=== PATIENT | female | born 2000 | race Two or more races ===

== ENCOUNTER 2021-02-09 13:18 | Inpatient (IN) | payer SELFPAY ==
[~2021-02-09] VITALS: Ht 165.1 cm; Wt 77.6 kg
[2021-02-09] MEDS ORDERED: IBUPROFEN 400 MG TABLET. PO PRN (13:30)
[2021-02-09] MEDS ORDERED: ACETAMINOPHEN 325 MG TABLET. PO PRN (13:30)
[2021-02-09] MEDS ORDERED: OXYTOCIN 30 UNIT/500 ML PREMIX 500 ML IV PRN ×4 (13:30)
[2021-02-09] MEDS ORDERED: IV RINGERS,LACTATED 1000ML 1,000 ML IV SCH (13:30)
[2021-02-09] MEDS ORDERED: LIDOCAINE 1% PF 30 ML VIAL. INJ PRN ×2 (13:30)
[2021-02-09] MEDS ORDERED: TERBUTALINE 1 MG/ML VIAL. SQ PRN ×2 (13:30)
[2021-02-09] MEDS ORDERED: 0.9 % SODIUM CHLORIDE 10 ML DISP.SYRIN. IV PRN ×2 (13:30)
[2021-02-09] MEDS ORDERED: BUTORPHANOL 2 MG/ML VIAL. IVP PRN ×2 (13:30)
[2021-02-09 13:59] LABS: BILIRUBIN,URINE NEGATIVE (NEG); CLARITY,URINE CLEAR; COLOR,URINE YELLOW; NITRITE,URINE NEGATIVE (NEG); PROTEIN,URINE NEGATIVE (NEG-TRACE); UROBILINOGEN,URINE 0.2 mg/dL (0.2 mg/dL)
[2021-02-09 14:04] LABS: BACTERIA,URINE FEW /HPF (0-FEW); RBC,URINE OCC /HPF (0-2); WBC,URINE OCC /HPF (0-4)
[2021-02-09 14:06] LABS: AMNIO PT POSITIVE
[2021-02-09 14:15] VITALS: BP 131/77
[2021-02-09 14:24] LABS: BASO # 0.1 x10^3/uL (0.0-0.2); BASO % 1 % (0-3); EOS % 0 % (0-3); HEMATOCRIT 39.3 % (36.0-47.0); LYMPH # 2.1 x10^3/uL (1.0-4.8); LYMPH % 16 % (24-48); MEAN CORPUSCULAR HEMOGLOBIN 27 pg (25-35); MEAN CORPUSCULAR HGB CONC 33 g/dL (31-37); MEAN CORPUSCULAR VOLUME 81 fL (79-100); MONO # 1.2 x10^3/uL (0.0-1.1); MONO % 9 % (0-9); NEUT # 9.8 x10^3/uL (1.8-7.7); NEUT % 74 % (31-73); PLATELET COUNT 249 x10^3/uL (140-400); RED BLOOD COUNT 4.86 x10^6/uL (3.50-5.40); RED CELL DISTRIBUTION WIDTH 15.9 % (11.5-14.5); WHITE BLOOD COUNT 13.2 x10^3/uL (4.0-11.0)
--- NOTE | 2021-02-09 16:12 | PDOC1 ---
FOLDING MACHINE FEEDER H&P Date of Admission: Date of Admission: February 09, 2021 at 13:18 History of Present Illness: EDC: 02/05/21 LMP: 05/01/20 20y @ 40.4 by L=20 presents with LOF and ctxs. The pt was confirmed ruptured. The pt was ctxing regular. On presentation the pt was found to be 2 cm dilated. After 2 hours the pt cervical exam had only progressed to 3 cm, so she was started on Pit. PMH: Depression/Anxiety PSH: Denies Meds: PNV All: NKDA OBHx: G1 SH: no tob, no EtOH FH: CA, DM Allergies: Coded Allergies: No Known Drug Allergies (Unverified , 12/26/15) Physical Exam: PE: GENERAL: No apparent distress. Alert and oriented. HEENT: Head normocephalic, atraumatic. NECK: Supple LUNGS: Clear to auscultation. HEART: RRR, S1, S2 present, pulses intact ABDOMEN: Soft, positive bowel sounds. EXTREMITIES: No cyanosis or edema. NEUROLOGIC: Normal speech, normal tone PSYCHIATRIC: Normal affect, normal mood. SKIN: No ulceration. FHT: 130s +acels/no decels/mLTV Waucoma: 4-5 min SVE: 3/50/-2 Labs: Laboratory Tests Test 02/09/21 13:44 02/09/21 13:45 02/09/21 14:10 Urine Collection Type Unknown Urine Color Yellow Urine Clarity Clear Urine pH 7.0 (<5.0-8.0) Urine Specific Knott 1.010 (1.000-1.030) Urine Protein Negative mg/dL (NEG-TRACE) Urine Glucose (UA) Negative mg/dL (NEG) Urine Ketones (Stick) Trace mg/dL (NEG) Urine Blood Trace (NEG) Urine Nitrite Negative (NEG) Urine Bilirubin Negative (NEG) Urine Urobilinogen Dipstick 0.2 mg/dL (0.2 mg/dL) Urine Leukocyte Esterase Negative (NEG) Urine RBC Occ /HPF (0-2) Urine WBC Occ /HPF (0-4) Urine Squamous Epithelial Cells Mod /LPF Urine Bacteria Few /HPF (0-FEW) Amniotic Fluid Swab Test Positive SARS-CoV-2 Antigen (Rapid) Negative (NEGATIVE) White Blood Count 13.2 x10^3/uL (4.0-11.0) H Red Blood Count 4.86 x10^6/uL (3.50-5.40) Hemoglobin 13.0 g/dL (12.0-15.5) Hematocrit 39.3 % (36.0-47.0) Mean Corpuscular Volume 81 fL (79-100) Mean Corpuscular Hemoglobin 27 pg (25-35) Mean Corpuscular Hemoglobin Concent 33 g/dL (31-37) Red Cell Distribution Width 15.9 % (11.5-14.5) H Platelet Count 249 x10^3/uL (140-400) Neutrophils (%) (Auto) 74 % (31-73) H Lymphocytes (%) (Auto) 16 % (24-48) L Monocytes (%) (Auto) 9 % (0-9) Eosinophils (%) (Auto) 0 % (0-3) Basophils (%) (Auto) 1 % (0-3) Neutrophils # (Auto) 9.8 x10^3/uL (1.8-7.7) H Lymphocytes # (Auto) 2.1 x10^3/uL (1.0-4.8) Monocytes # (Auto) 1.2 x10^3/uL (0.0-1.1) H Eosinophils # (Auto) 0.0 x10^3/uL (0.0-0.7) Basophils # (Auto) 0.1 x10^3/uL (0.0-0.2) Treponema pallidum Antibody Nonreactive (Nonreactive) Laboratory Tests 02/09/21 14:10 Laboratory Tests 02/09/21 14:10 Assessment & Plan: A/P 20y @ 40.4 by L=20 1.) SROM will start Pit for augmentation 2.) Gap in care b/t 16-30 wks 3.) Declined Flu vaccine 4.) TDAP given 11/26/20 5.) Fetus cat I FHT 6.) GBS neg ORTIZ VERA MD February 09, 2021 16:12
[2021-02-09] MEDS ORDERED: OXYTOCIN PREMIX 30 UNIT/500 ML NS BAG. IV ONE (16:30)
[2021-02-09] MEDS: IV RINGERS,LACTATED 1000ML 1,000 ML IV SCH (18:20)
[2021-02-10] MEDS: IV RINGERS,LACTATED 1000ML 1,000 ML IV SCH (04:13)
--- NOTE | 2021-02-10 11:43 | PDOC ---
VAGINAL DELIVERY DATE DATE: 02/10/21 TIME: 11:43 TIME Patient delivered a viable male infant over intact perineum at 1126. Wt 8 lb 1.5 oz. Apgars 8/9. Placenta delivered spontaneously, intact with 3VC. No lacerations. Good hemostasis noted. 20 U of Pit given with IVF. EBL 300cc. WEIGHT Weight [ ] ORTIZ VERA MD February 10, 2021 11:43
[2021-02-10] MEDS ORDERED: oxyCODONE/APAP 5/325 1 TAB TABLET PO PRN (12:00)
[2021-02-10] MEDS ORDERED: OXYTOCIN 30 UNIT/500 ML PREMIX 500 ML IV PRN (12:00)
[2021-02-10] MEDS ORDERED: ZOLPIDEM 5 MG TABLET. PO PRN (12:00)
[2021-02-10] MEDS ORDERED: MAGNESIUM HYDROXIDE 2,400 MG/30 ML ORAL.SUSP. PO PRN (12:00)
[2021-02-10] MEDS ORDERED: 0.9 % SODIUM CHLORIDE 10 ML DISP.SYRIN. IV PRN (12:00)
[2021-02-10] MEDS ORDERED: MMR per PROTOCOL. MC PRN (12:00)
[2021-02-10] MEDS ORDERED: ACETAMINOPHEN 325 MG TABLET. PO PRN (12:00)
[2021-02-10] MEDS ORDERED: MAG HYDROX/ALUMINUM HYD/SIMETH 30 ML ORAL.SUSP PO PRN (12:00)
[2021-02-10] MEDS ORDERED: PHENYLEPH/MINERAL OIL/PETROLAT RECTAL OINTMENT TUBE. RC PRN (12:00)
[2021-02-10] MEDS ORDERED: BENZOCAINE 20% TOPICAL AEROSOL SPRAY 57GM CAN. TP PRN (12:00)
[2021-02-10] MEDS ORDERED: diphenhydrAMINE HCL 25 MG CAPSULE PO PRN (12:00)
[2021-02-10] MEDS ORDERED: TDaP (Adacel) per PROTOCOL. MC PRN (12:00)
[2021-02-10] MEDS ORDERED: HYDROCORTISONE 1% TOPICAL OINTMENT 30GM TUBE. TP PRN (12:00)
[2021-02-10] MEDS ORDERED: SIMETHICONE 80 MG TAB.CHEW PO PRN (12:00)
[2021-02-10] MEDS: IBUPROFEN 400 MG TABLET. PO PRN ×2 (13:42→22:42)
[2021-02-10 14:00] VITALS: BP 116/71
[2021-02-10 18:31] VITALS: BP 113/67
[2021-02-10 20:00] VITALS: BP 106/66
[2021-02-11 00:30] VITALS: BP 103/57
[2021-02-11 04:10] VITALS: BP 117/63
[2021-02-11 05:23] LABS: HEMATOCRIT 35.9 % (36.0-47.0); HEMOGLOBIN 11.7 g/dL (12.0-15.5); RED BLOOD COUNT 4.35 x10^6/uL (3.50-5.40); RED CELL DISTRIBUTION WIDTH 16.3 % (11.5-14.5)
[2021-02-11] MEDS ORDERED: FERROUS SULFATE 325 MG TABLET. PO SCH (08:00)
[2021-02-11 08:10] VITALS: BP 108/64
[2021-02-11] MEDS: PRENATAL MULTIVITAMIN TABLET. PO SCH (08:26)
[2021-02-11] MEDS: DOCUSATE SODIUM 100 MG CAPSULE. PO PRN ×2 (08:27→17:19)
[2021-02-11] MEDS: IBUPROFEN 400 MG TABLET. PO PRN ×2 (08:28→17:20)
--- NOTE | 2021-02-11 11:05 | PDOC ---
LOOM STARTER PROGRESS NOTE Date of Service: DATE: 02/11/21 TIME: 11:04 Subjective: Pt with good pain control. Jessy PO. Voiding. Minimal lochia. Objective: Vital Signs: Vital Signs Date Time Temp Pulse Resp B/P (MAP) Pulse Ox O2 Delivery O2 Flow Rate FiO2 02/10/21 07:25 16 99 Room Air 02/10/21 14:00 98.3 111 116/71 (86) 98.3 Vital Signs Date Time Temp Pulse Resp B/P (MAP) Pulse Ox O2 Delivery O2 Flow Rate FiO2 02/11/21 08:10 98.2 115 18 108/64 (79) 98 Room Air 98.2 Labs: Laboratory Tests Test 02/11/21 04:55 White Blood Count 18.0 x10^3/uL (4.0-11.0) H Red Blood Count 4.35 x10^6/uL (3.50-5.40) Hemoglobin 11.7 g/dL (12.0-15.5) L Hematocrit 35.9 % (36.0-47.0) L Mean Corpuscular Volume 83 fL (79-100) Mean Corpuscular Hemoglobin 27 pg (25-35) Mean Corpuscular Hemoglobin Concent 33 g/dL (31-37) Red Cell Distribution Width 16.3 % (11.5-14.5) H Platelet Count 242 x10^3/uL (140-400) Laboratory Tests 02/11/21 04:55 Laboratory Tests 02/11/21 04:55 Physical Exam: GENERAL: No apparent distress. Alert and oriented. HEENT: Head normocephalic, atraumatic. NECK: Supple LUNGS: Clear to auscultation. HEART: RRR, S1, S2 present, pulses intact ABDOMEN: Soft, positive bowel sounds. EXTREMITIES: No cyanosis or edema. NEUROLOGIC: Normal speech, normal tone PSYCHIATRIC: Normal affect, normal mood. SKIN: No ulceration. FFNT below umb No C/C/E Assessment & Plan: A/P 20y PPD #1 s/p 1.) PP doing well 2.) Declined Flu vaccine 3.) TDAP given 11/26/20 4.) Hgb 13.0 -> 11.7 5.) Cont PP ORTIZ Mata MD February 11, 2021 11:05
[2021-02-11 13:00] VITALS: BP_SYST 103; BP_SYST 134; BP_DIAS 62; BP_DIAS 79
[2021-02-11 16:25] VITALS: BP_SYST 112; BP_SYST 134; BP_DIAS 77; BP_DIAS 82
[2021-02-11 20:00] VITALS: BP 116/72
[2021-02-12] MEDS: IBUPROFEN 400 MG TABLET. PO PRN ×2 (02:43→11:15)
[2021-02-12 02:45] VITALS: BP 115/71
[2021-02-12 08:10] VITALS: BP 105/65
[2021-02-12] MEDS: DOCUSATE SODIUM 100 MG CAPSULE. PO PRN (09:15)
[2021-02-12] MEDS: PRENATAL MULTIVITAMIN TABLET. PO SCH (09:15)
[2021-02-12] MEDS ORDERED: IBUP-1060 PO (12:35)
[2021-02-12] MEDS ORDERED: DOCU-109 PO (12:35)
[2021-02-12 13:45] VITALS: BP 115/83
--- NOTE | 2021-02-12 14:39 | NUR ---
dismissed amb per pt request to home with baby and fob in car. Baby in carseat. Stable on feet. Rx and instructions given. well independently.
--- NOTE | 2021-02-12 15:13 | PDOC ---
FASHION CONSULTANT PROGRESS NOTE Date of Service: DATE: 02/12/21 TIME: 15:12 Subjective: Pt with good pain control. Jessy PO. Voiding. Minimal lochia. Objective: Vital Signs: Vital Signs Date Time Temp Pulse Resp B/P (MAP) Pulse Ox O2 Delivery O2 Flow Rate FiO2 02/11/21 08:10 98.2 115 18 108/64 (79) 98 Room Air 98.2 Vital Signs Date Time Temp Pulse Resp B/P (MAP) Pulse Ox O2 Delivery O2 Flow Rate FiO2 02/12/21 13:45 97.9 96 18 115/83 (94) Room Air 97.9 02/12/21 08:10 98 Physical Exam: GENERAL: No apparent distress. Alert and oriented. HEENT: Head normocephalic, atraumatic. NECK: Supple LUNGS: Clear to auscultation. HEART: RRR, S1, S2 present, pulses intact ABDOMEN: Soft, positive bowel sounds. EXTREMITIES: No cyanosis or edema. NEUROLOGIC: Normal speech, normal tone PSYCHIATRIC: Normal affect, normal mood. SKIN: No ulceration. FFNT below umb No C/C/E Assessment & Plan: A/P 20y PPD #2 s/p 1.) PP doing well 2.) Declined Flu vaccine 3.) TDAP given 11/26/20 4.) Hgb 13.0 -> 11.7 5.) D/c home ORTIZ VERA MD February 12, 2021 15:13
--- NOTE | 2021-02-12 20:24 | DS ---
DATE OF DISCHARGE: 02/12/2021 ADMISSION DIAGNOSES: 1. Intrauterine at 40 weeks and 4 days by LMP equal to 20-week ultrasound. 2. Spontaneous rupture of membranes. 3. Gap in care between 16-30 weeks of gestation. 4. Declines flu vaccine. 5. Status post Tdap. 6. Group B Streptococcus negative. DISCHARGE DIAGNOSES: 1. Intrauterine at 40 weeks and 4 days by LMP equal to 20-week ultrasound. 2. Spontaneous rupture of membranes. 3. Gap in care between 16-30 weeks of gestation. 4. Declines flu vaccine. 5. Status post Tdap. 6. Group B Streptococcus negative. PROCEDURE: Spontaneous vaginal delivery. BRIEF HOSPITAL COURSE: The patient is a 20-year-old 1, para 0 who presented to labor and delivery at 40 weeks and 4 days by LMP equal to a 20-week ultrasound with leakage of fluid and contractions. The patient was confirmed ruptured. The patient was regularly umang, so she was expectantly managed. On presentation, the patient was found to be at 2 cm. After the course of 2 hours, the patient only progressed to 3 cm, so she was started on Pitocin for augmentation. The patient was augmented throughout the night and ultimately delivered the following morning by vaginal delivery. See delivery note for full detail. By day #2, the patient was meeting all discharge criteria and was subsequently discharged home. Of note, the patient's hemoglobin on admission was 13.0 and after discharge it was found to be 11.7. DISCHARGE INSTRUCTIONS: The patient was told not to lift anything greater than 20 pounds, have pelvic rest for 6 weeks, not to drive on narcotics. The patient was to call if she had fevers, chills, nausea, vomiting, abdominal pain, or any additional questions or concerns. FOLLOWUP APPOINTMENT: The patient was to follow up on 03/27/2021 at 09:20 a.m. at [facility]. DISCHARGE MEDICATIONS: The patient was given a prescription for Motrin 800 mg 30 pills and then Colace 100 mg 30 pills. ANIA/LAURIE DR: Isac TID: [id number]
== END 2021-02-12 14:15 | disposition home or self-care (01) | DRG 807 ==
LOC: 3 SO LND 13:18 → OBSVTOIN 13:29 → 3 SO LND 02-10 19:17
PROVIDERS: ADMIT Obstetrics & Gynecology; ATTEND Obstetrics & Gynecology
PROC: 10E0XZZ Delivery of Products of Conception, External Approach (ICD-10-PCS; principal; 2021-02-10)
PROC: 3E033VJ Introduction of Other Hormone into Peripheral Vein, Percutaneous Approach (ICD-10-PCS; 2021-02-10)
DX: O42.92 Full-term premature rupture of membranes, unspecified as to length of time between rupture and onset of labor (principal); Z37.0 Single live birth; O99.344 Other mental disorders complicating childbirth; F32.9 Major depressive disorder, single episode, unspecified; F41.9 Anxiety disorder, unspecified; Z20.822 Contact with and (suspected) exposure to COVID-19; Z3A.40 40 weeks gestation of pregnancy; Z83.3 Family history of diabetes mellitus; Z84.89 Family history of other specified conditions
CPT/HCPCS: 36415; 81001; 84112; 85025; 85027; 86592; 86850; 86900; 86901; 87426; G0379; J0595; J2590; J7120; U0003; U0005; G0378